=== PATIENT | female | born 2000 | race Hispanic/Latino ===

== ENCOUNTER 2025-01-18 11:35 | Day surgery (SDC) | payer BC ==
[2025-01-18] MEDS ORDERED: hydrALAZINE 20 MG/ML VIAL SLOW IVP PRN (12:11)
[2025-01-18 12:25] VITALS: BMI 38.2
[2025-01-18 12:54] LABS: #Basophils 0.03 10x3/uL (0.0-0.2); #Eosinophils 0.06 10x3/uL (0.0-0.5); #Monocytes 0.97 10x3/uL (0.0-1.1); #Neutrophils 8.57 10x3/uL (1.5-8.4); %Basophils 0.3 % (0.0-2.0); %Eosinophils 0.5 % (0.0-6.0); %Lymphocytes 16.4 % (18.0-47.0); %Monocytes 8.4 % (0.0-10.0); %Neutrophils 73.8 % (40.0-75.0); Hematocrit 35.8 % (34.9-44.5); Hemoglobin 11.8 g/dL (12.0-15.5); Mean Corpuscular Hemoglobin 27.3 pg (27.0-33.0); Mean Corpuscular Volume 82.9 fL (81.6-98.3); Platelet Count 215 10x3/uL (150-450); Red Blood Cell (RBC) Count 4.32 10x6/uL (3.90-5.03); White Blood Cell (WBC) Count 11.60 10x3/uL (3.5-10.5)
[2025-01-18 13:29] LABS: Glucose, Urine (Dipstick) Normal (Negative); Leukocyte 500 (Negative); Protein, Urine (Dipstick) 15 mg/dl (Neg-Trace); Specific Gravity, Urine 1.010 (1.005-1.030)
[2025-01-18 13:37] LABS: Protein, Urine Random Quant Less than 10 mg/dL (1-14)
[2025-01-18 13:43] LABS: Bacteria/HPF 2+ HPF (None Seen); CAUTI Indications for Culture Pregnancy; RBC/HPF 0-3 HPF (0-3)
[2025-01-18 13:44] LABS: Urine Culture Reflex Yes Yes
[2025-01-18 14:23] LABS: ALT (SGPT) 14 U/L (Less than 34); AST (SGOT) 55 U/L (11-34); Albumin 3.0 g/dL (3.1-4.5); Alkaline Phosphatase 117 U/L (40-110); Anion Gap 13 mmol/L (10-20); BUN (Urea Nitrogen) 8 mg/dL (7.0-18.7); Bilirubin, Total 0.3 mg/dL (0.3-1.2); Calc. Creatinine Clearance 222 mL/min (70-130); Calcium 9.3 mg/dL (7.8-10.44); Carbon Dioxide 20 mmol/L (22-29); Chloride 105 mmol/L (98-107); Globulin 4.5 g/dL (2.4-3.5); Glucose 84 mg/dL (70-105); Potassium 4.0 mmol/L (3.5-5.1); Sodium 134 mmol/L (136-145)
== END 2025-01-18 14:20 | disposition home or self-care (01) ==
LOC: CSHLD/OP 11:35
PROVIDERS: ATTEND Emergency Medicine
DX: O10.912 Unspecified pre-existing hypertension complicating pregnancy, second trimester (principal); O24.415 Gestational diabetes mellitus in pregnancy, controlled by oral hypoglycemic drugs; Z3A.15 15 weeks gestation of pregnancy; Z79.84 Long term (current) use of oral hypoglycemic drugs; Z79.899 Other long term (current) drug therapy
CPT/HCPCS: 80053; 81001; 82570; 84156; 85025; 87086; 99285

== ENCOUNTER 2025-01-21 20:42 | Inpatient (IN) | payer BC ==
[~2025-01-21 20:42] MED LIST: Bupivacaine 0.25% HCL 30 ML VIAL ONE; Bupivacaine HCl 0.5%/Epinephrine 1:200,000/PF 30 ml Vial ONE
[2025-01-21 21:59] LABS: Protein, Urine Random Quant 12.0 mg/dL (1-14)
[2025-01-21] MEDS ORDERED: hydrALAZINE 20 MG/ML VIAL SLOW IVP PRN ×3 (22:18→22:52)
[2025-01-21] MEDS ORDERED: Tranexamic Acid 1,000 MG/10 ML VIAL IVP PRN (22:18)
[2025-01-21] MEDS ORDERED: Ondansetron PF 4 MG/2 ML Vial IVP PRN (22:18)
[2025-01-21] MEDS ORDERED: Methylergonovine 0.2 MG/ML VIAL IM PRN (22:18)
[2025-01-21] MEDS ORDERED: Diphenoxylate HCl/Atropine Tablet PO PRN ×2 (22:18)
[2025-01-21] MEDS ORDERED: Carboprost 250 MCG/ML AMP IM PRN (22:18)
[2025-01-21] MEDS ORDERED: Ibuprofen 800 MG TAB PO PRN (22:18)
[2025-01-21] MEDS ORDERED: Lidocaine 1% (PF) 30 ML VIAL SC PRN (22:18)
[2025-01-21 22:23] LABS: #Basophils 0.03 10x3/uL (0.0-0.2); #Eosinophils 0.20 10x3/uL (0.0-0.5); #Monocytes 1.54 10x3/uL (0.0-1.1); #Neutrophils 8.69 10x3/uL (1.5-8.4); %Basophils 0.2 % (0.0-2.0); %Eosinophils 1.5 % (0.0-6.0); %Lymphocytes 20.6 % (18.0-47.0); %Monocytes 11.6 % (0.0-10.0); %Neutrophils 65.5 % (40.0-75.0); Hematocrit 35.6 % (34.9-44.5); Hemoglobin 11.5 g/dL (12.0-15.5); Mean Corpuscular Hemoglobin 27.1 pg (27.0-33.0); Mean Corpuscular Volume 84.0 fL (81.6-98.3); Platelet Count 213 10x3/uL (150-450); Red Blood Cell (RBC) Count 4.24 10x6/uL (3.90-5.03); White Blood Cell (WBC) Count 13.27 10x3/uL (3.5-10.5)
[2025-01-21] MEDS ORDERED: Oxytocin 30 units/NS 500 ML 500 ML IV SCH (22:30)
[2025-01-21 22:48] LABS: ALT (SGPT) 16 U/L (Less than 34); AST (SGOT) 23 U/L (11-34); Albumin 2.8 g/dL (3.1-4.5); Alkaline Phosphatase 124 U/L (40-110); Anion Gap 13 mmol/L (10-20); BUN (Urea Nitrogen) 11 mg/dL (7.0-18.7); Bilirubin, Total 0.2 mg/dL (0.3-1.2); Calc. Creatinine Clearance 0 mL/min (70-130); Calcium 10.0 mg/dL (7.8-10.44); Carbon Dioxide 22 mmol/L (22-29); Chloride 107 mmol/L (98-107); Globulin 4.4 g/dL (2.4-3.5); Glucose 81 mg/dL (70-105); Potassium 4.4 mmol/L (3.5-5.1); Sodium 138 mmol/L (136-145)
[2025-01-21] MEDS ORDERED: Calcium Gluc 4.6 MEQ/10 ML (100 MG/ML) SLOW IVP PRN (22:52)
[2025-01-21] MEDS: Magnesium Sulfate 20 gm/500 ml 20 GM/500 ML BAG ONE (22:56)
[2025-01-21] MEDS: hydrALAZINE 20 MG/ML VIAL SLOW IVP PRN (22:56)
[2025-01-21 23:04] LABS: Hematocrit 34.8 % (34.9-44.5); Hemoglobin 11.5 g/dL (12.0-15.5); Mean Corpuscular Hemoglobin 27.4 pg (27.0-33.0); Mean Corpuscular Volume 82.9 fL (81.6-98.3); Platelet Count 226 10x3/uL (150-450); Red Blood Cell (RBC) Count 4.20 10x6/uL (3.90-5.03); White Blood Cell (WBC) Count 13.40 10x3/uL (3.5-10.5)
[2025-01-21 23:35] LABS: Hep B Surf Ag - L&D Non-Reactive S/CO (NonReactive)
[2025-01-21 23:36] LABS: Syphilis Antibody Index 0.11 S/CO (<1.00 Non-Reactive)
[2025-01-22 00:18] VITALS: BMI 38.2
[2025-01-22] MEDS: Acetaminophen 500 MG TAB PO PRN (01:13)
[2025-01-22] MEDS: Magnesium Sulfate 20 gm/500 ml 20 GM/500 ML BAG IVPB SCH (07:45)
[2025-01-22] MEDS: Metoclopramide HCl 10 MG (2 mL) VIAL IVP SCH (14:49)
[2025-01-22] MEDS: Oxytocin 30 units/NS 500 ML 500 ML IV SCH (16:29)
[2025-01-22] MEDS: fentaNYL/Ropivacaine Epidural 100 ML ONE (20:36)
[2025-01-22] MEDS ORDERED: Ondansetron PF 4 MG/2 ML Vial IVP PRN (20:38)
[2025-01-22] MEDS ORDERED: Acetaminophen 325 MG TAB PO PRN (20:38)
[2025-01-22] MEDS ORDERED: diphenhydrAMINE 50 MG/ML VIAL IVP PRN (20:38)
[2025-01-22] MEDS ORDERED: Communication Order-Pharmacy FS SCH (20:45)
[2025-01-22] MEDS: Acetaminophen 500 MG TAB PO SCH (21:46)
[2025-01-22] MEDS: fentaNYL 2 mcg/Ropivacaine 0.2% Epidural 100 ML CADD EPIDURAL SCH (22:45)
[2025-01-23] MEDS ORDERED: hydrALAZINE 20 MG/ML VIAL SLOW IVP PRN ×2 (04:46→19:12)
[2025-01-23] MEDS ORDERED: Bicitra 30 ML UDCUP PO PRN (05:25)
[2025-01-23] MEDS ORDERED: Famotidine/PF 20 mg/2ml Vial SLOW IVP PRN (05:25)
[2025-01-23] MEDS ORDERED: Azithromycin 500 MG in Sodium Chloride 0.9% 250 ML 250 ML IVPB SCH (05:30)
[2025-01-23 06:02] LABS: Analyzer IN Cardio CS NICU; Critical Notified By: CP.LH1; RapidComm Collect By CBN
[2025-01-23 06:08] LABS: Analyzer IN Cardio CS NICU; Critical Notified By: CP.LH1; RapidComm Collect By CBN; pH (Cord, venous) 7.345 (7.250-7.350)
[2025-01-23] MEDS ORDERED: Ondansetron PF 4 MG/2 ML Vial IVP PRN ×3 (07:08→19:12)
[2025-01-23] MEDS ORDERED: Meperidine HCl/PF 25 MG (1 mL) VIAL SLOW IVP PRN (07:08)
[2025-01-23] MEDS ORDERED: HYDROmorphone 0.5 MG/0.5 ML SYRINGE SLOW IVP PRN (07:08)
[2025-01-23] MEDS ORDERED: diphenhydrAMINE 50 MG/ML VIAL IVP PRN (07:08)
[2025-01-23] MEDS ORDERED: Communication Order-Pharmacy FS SCH (07:15)
[2025-01-23] MEDS: Ketorolac Tromethamine 30 MG (1 mL) VIAL IVP SCH (08:03)
[2025-01-23] MEDS ORDERED: Bisacodyl 10 MG SUPP PR PRN (19:12)
[2025-01-23] MEDS ORDERED: Oxytocin 30 units/NS 500 ML 500 ML IV SCH (19:12)
[2025-01-23] MEDS ORDERED: diphenhydrAMINE 25 MG CAP PO PRN (19:12)
[2025-01-23] MEDS ORDERED: Lanolin Ointment 7 GM TUBE TOP PRN (19:12)
[2025-01-23] MEDS ORDERED: Acetaminophen 325 MG TAB PO PRN (19:12)
[2025-01-23] MEDS ORDERED: Simethicone Chewable 80 MG TAB PO PRN (19:12)
[2025-01-23] MEDS ORDERED: HYDROcodone/Acetaminophen 5/325 mg Tablet PO PRN (20:45)
[2025-01-24] MEDS: Ketorolac Tromethamine 30 MG (1 mL) VIAL IVP PRN (05:54)
[2025-01-24 06:00] LABS: Hematocrit 29.4 % (34.9-44.5); Hemoglobin 9.7 g/dL (12.0-15.5); Mean Corpuscular Hemoglobin 27.2 pg (27.0-33.0); Mean Corpuscular Volume 82.6 fL (81.6-98.3); Platelet Count 182 10x3/uL (150-450); Red Blood Cell (RBC) Count 3.56 10x6/uL (3.90-5.03); White Blood Cell (WBC) Count 13.74 10x3/uL (3.5-10.5)
[2025-01-24] MEDS: Boostrix 0.5 ML (Tdap) VIAL (>/=7 yrs of age) IM ONE (07:32)
[2025-01-24] MEDS: Furosemide 40 MG (4 mL) VIAL SLOW IVP SCH ×2 (07:32→08:40)
[2025-01-24] MEDS: Ibuprofen 800 MG TAB PO SCH (07:32)
[2025-01-24] MEDS: Ferrous Sulfate 325 MG TAB PO SCH (07:33)
[2025-01-24] MEDS: Ketorolac Tromethamine 30 MG (1 mL) VIAL ONE (07:33)
[2025-01-24] MEDS: Magnesium Sulfate 20 gm/500 ml 20 GM/500 ML BAG ONE (07:33)
[2025-01-24] MEDS: HYDROcodone/Acetaminophen 5/325 mg Tablet PO PRN (10:26)
[2025-01-24] MEDS: Azithromycin 500 MG VIAL ONE (17:53)
[2025-01-24] MEDS: Oxytocin 10 UNITS/ML VIAL ONE ×2 (17:53)
[2025-01-24] MEDS: CEFAZOLIN 2 GM VIAL ONE (17:53)
[2025-01-24] MEDS: Ondansetron PF 4 MG/2 ML Vial ONE (17:53)
[2025-01-25] MEDS: Furosemide 20 MG TAB PO SCH (08:49)
[2025-01-25 12:07] VITALS: BP 119/76; TEMP 98.6
== END 2025-01-25 14:55 | disposition home or self-care (01) | DRG 788 ==
LOC: CSHERS 20:42 → CSHLD/OP 20:55 → CSHLD 22:19 → UNDOADMIN 22:23 → CSHLD 01-23 05:35 → CSHPP 01-24 06:40
PROVIDERS: ADMIT Family Medicine; ATTEND Family Medicine
PROC: 4A1HXCZ Monitoring of Products of Conception, Cardiac Rate, External Approach (ICD-10-PCS; principal; 2025-01-21)
PROC: 10D00Z1 Extraction of Products of Conception, Low, Open Approach (ICD-10-PCS; 2025-01-21)
PROC: 3E0DXGC Introduction of Other Therapeutic Substance into Mouth and Pharynx, External Approach (ICD-10-PCS; 2025-01-21)
DX: O11.4 Pre-existing hypertension with pre-eclampsia, complicating childbirth (principal); O24.424 Gestational diabetes mellitus in childbirth, insulin controlled; O76 Abnormality in fetal heart rate and rhythm complicating labor and delivery; O99.214 Obesity complicating childbirth; O69.82X0 Labor and delivery complicated by other cord entanglement, without compression, not applicable or unspecified; O99.03 Anemia complicating the puerperium; Z79.899 Other long term (current) drug therapy; Z79.84 Long term (current) use of oral hypoglycemic drugs; Z3A.38 38 weeks gestation of pregnancy; Z37.0 Single live birth
CPT/HCPCS: 36415; 36416; 51702; 80053; 82570; 82805; 82951; 84156; 85025; 85027; 86780; 86850; 86900; 86901; 87340; 99285; J0360; J0665; J1885; J1940; J2274; J2405; J2590; J2765; J3010; J3475